=== PATIENT | male | born 1950 | race Caucasian/White ===

== ENCOUNTER 2021-06-11 15:44 | Emergency (ER) | payer MEDICARE, BC ==
--- NOTE | 2021-06-11 19:35 | EDM.PDOC ---
ED HPI GENERAL MEDICAL PROBLEM - General Chief Complaint: General Stated Complaint: NEEDS PICC LINE FIXED Time Seen by Provider: 06/11/21 19:04 Source of Information: Reports: Patient, Family () History Limitations: Reports: No Limitations - History of Present Illness INITIAL COMMENTS - FREE TEXT/NARRATIVE: Patient presents emergency room today secondary to concern about occluded PICC line-R upper arm site. He states that he has a PICC line for 6 weeks of IV antibiotics (nafcillin until or 4 Jun) 24-hour infusion secondary to infected left groin angiogram site that occurred when he was admitted to [facility]. He has been doing well up until today he decided to go out and cut some bushes and he gently ended up catching his PICC line infusion tubing cutt ing that line. He did clamp line but continue to work outside for approximately 2 and half hours after incident occurred. He states that instead occurred around noon states that about [id number] he told her about it and she attempted to at least flush line and hookup new tubing as she did not want to have anything open for possibility of infection. She states that she was unable to flush line and was then recommended by home health to come to the emergency room for further care NKDA PMH/Meds--reviewed in EMR Tob--former EtOH/Drug--denies Has not had COVID infection, has had COVID immunization - Related Data Allergies Allergy/AdvReac Type Severity Reaction Status Date / Time No Known Allergies Allergy Verified 06/11/21 18:44 Home Meds: Home Meds Clopidogrel [Plavix] 75 mg PO DAILY 06/11/21 [History] Dulaglutide [Trulicity] 3 mg SQ WEEKLY 06/11/21 [History] Dutasteride 1 tab PO DAILY 06/11/21 [History] Gentamicin [Gentak 0.3% Ophth Oint] 1 drop EYEBOTH ASDIRECTED PRN 06/11/21 [History] Insulin Glargine,Hum.Rec.Anlog [Basaglar Kwikpen U-100] 19 units SQ BEDTIME 06/11/21 [History] Losartan [Cozaar] 50 mg PO DAILY 06/11/21 [History] Nafcillin Sodium 10 gm IV DAILY 06/11/21 [History] Rosuvastatin [Crestor] 20 mg PO BEDTIME 06/11/21 [History] Tamsulosin HCl [Flomax] 1 tab PO BEDTIME 06/11/21 [History] azaTHIOprine [Imuran] 1 tab PO BEDTIME 06/11/21 [History] glipiZIDE [Glucotrol XL] 10 mg PO DAILY 06/11/21 [History] metFORMIN HCl [Metformin HCl] 1,000 mg PO BID 06/11/21 [History] Past Medical History Cardiovascular History: Reports: Other (See Below) Other Cardiovascular History: heart murmur repaired Gastrointestinal History: Reports: Other (See Below) Other Gastrointestinal History: chrones Neurological History: Reports: CVA Endocrine/Metabolic History: Reports: Diabetes, Type II - Past Surgical History Head Surgeries/Procedures: Reports: None Cardiovascular Surgical History: Reports: Valve Replacement, Other (See Below) Other Cardiovascular Surgeries/Procedures: cardiac stent GI Surgical History: Reports: Appendectomy, Small Bowel Endocrine Surgical History: Reports: None Neurological Surgical History: Reports: None Dermatological Surgical History: Reports: None Social & Family History - Tobacco Use Tobacco Use Status *Q: Former Tobacco User Years of Tobacco use: 12 Packs/Tins Daily: 1 Used Tobacco, but Quit: Yes Month/Year Tobacco Last Used: 1979 - Caffeine Use Caffeine Use: Reports: Coffee, Tea - Recreational Drug Use Recreational Drug Use: No ED ROS GENERAL - Review of Systems Review Of Systems: Comprehensive ROS is negative, except as noted in HPI. ED EXAM, GENERAL - Physical Exam Exam: See Below Exam Limited By: No Limitations General Appearance: Alert, WD/WN, No Apparent Distress Eye Exam: Bilateral Eye: EOMI, Normal Inspection Ears: Normal External Exam, Hearing Grossly Normal Nose: Normal Inspection Throat/Mouth: Normal Voice, No Airway Compromise Head: Atraumatic, Normocephalic Neck: Normal Inspection, Supple, Full Range of Motion Respiratory/Chest: No Respiratory Distress Cardiovascular: Normal Peripheral Pulses (Male) Exam: Deferred Rectal (Males) Exam: Deferred Back Exam: Normal Inspection, Full Range of Motion Extremities: Normal Inspection, Normal Range of Motion, Normal Capillary Refill, Other (has noted PICC line site to R-upper arm, no reddness/swelling or tenderness noted; it has cap in place for needless system) Neurological: Alert, Oriented, Normal Cognition, Normal Gait, No Motor/Sensory Deficits Psychiatric: Normal Affect, Normal Mood Skin Exam: Warm, Dry, Intact, Normal Color Course - Vital Signs Text/Narrative:: Harley ALMAGUER RN was able to flush PICC line without any difficulty able to withdraw blood. Flushed again and then hooked up to patient's home infusion of nafcillin. At this time patient is ready for discharge patient already has arranged home health care and the home health nurse for further care regarding his ongoing antibiotic infusion Last Recorded V/S: Last Vital Signs Temp 97.5 F 06/11/21 19:01 Pulse 57 L 06/11/21 19:01 Resp 18 06/11/21 19:01 BP 166/79 H 06/11/21 19:01 Pulse Ox 94 L 06/11/21 19:01 Departure - Departure Time of Disposition: 19:34 Disposition: Home, Self-Care 01 Condition: Good Clinical Impression: Occluded PICC line - Discharge Information *PRESCRIPTION DRUG MONITORING PROGRAM REVIEWED*: Not Applicable *COPY OF PRESCRIPTION DRUG MONITORING REPORT IN PATIENT JORDAN: Not Applicable Instructions: PICC Home Care Guide Referrals: Guicho Guevara MD [Primary Care Provider] - Forms: ED Department Discharge Additional Instructions: Continue to follow home care for your PICC line as well as infusions contact your home health nurse for any further questions or concerns Sepsis Event Note (ED) - Evaluation Sepsis Screening Result: No Definite Risk - Focused Exam Vital Signs: Vital Signs Temp Pulse Resp BP Pulse Ox 06/11/21 19:01 97.5 F 57 L 18 166/79 H 94 L 06/11/21 18:40 97.5 F 57 L 18 166/79 H 94 L
== END 2021-06-11 20:02 | disposition home or self-care (01) ==
LOC: JP.ED 15:44
DX: T82.898A Other specified complication of vascular prosthetic devices, implants and grafts, initial encounter (principal); E11.9 Type 2 diabetes mellitus without complications; Z87.891 Personal history of nicotine dependence; Z79.4 Long term (current) use of insulin; Z86.73 Personal history of transient ischemic attack (TIA), and cerebral infarction without residual deficits; Z79.899 Other long term (current) drug therapy
CPT/HCPCS: 99283

== ENCOUNTER 2025-06-13 16:31 | Emergency (ER) | payer MEDICARE, BC ==
[2025-06-13 17:10] LABS: BASOPHILS ABSOLUTE AUTO 0.06 K/uL (0.00-0.10); BASOPHILS PERCENT AUTO 0.6 % (0.1-1.3); EOSINOPHILS ABSOLUTE AUTO 0.28 K/uL (0.00-0.40); EOSINOPHILS PERCENT AUTO 2.7 % (0.0-5.4); IMMATURE GRAN ABSOLUTE AUTO 0.03 K/uL (0.00-0.23); IMMATURE GRAN PERCENT AUTO 0.3 % (0.0-0.7); LYMPHOCYTES ABSOLUTE AUTO 3.91 K/uL (0.8-3.3); LYMPHOCYTES PERCENT AUTO 37.3 % (11.4-47.7); MONOCYTES ABSOLUTE AUTO 0.79 K/uL (0.20-0.90); MONOCYTES PERCENT AUTO 7.5 % (3.3-12.6); NEUTROPHILS ABSOLUTE AUTO 5.41 K/uL (1.0-7.6); NEUTROPHILS PERCENT AUTO 51.6 % (40.0-78.1); PLATELET COUNT,PLT 224 K/uL (130-375); RED BLOOD CELL COUNT 4.44 M/uL (4.14-5.76); WHITE BLOOD CELL COUNT,WBC 10.5 K/uL (3.2-11.0)
[2025-06-13 17:15] LABS: INR 1.1
[2025-06-13 17:16] LABS: A/G RATIO 1.0 (1.2-2.2); ALANINE AMINOTRANSFERASE,ALT 34 U/L (12-78); ASPARTATE AMNIOTRANSFERASE,AST 24 U/L (15-37); BILIRUBIN TOTAL 0.8 mg/dL (0.2-1.0); BLOOD UREA NITROGEN,BUN 35 mg/dL (7-18); CARBON DIOXIDE,CO2 28 mmol/L (21-32); CHLORIDE,CL 98 mmol/L (100-108); CREATININE 1.5 mg/dL (0.8-1.3); ESTIMATED GFR 49 mL/min (>60); GLUCOSE RANDOM 73 mg/dL (74-106); POTASSIUM,K 3.9 mmol/L (3.6-5.2); PROTEIN TOTAL,TP 8.7 g/dL (6.4-8.2); SODIUM,NA 136 mmol/L (140-148)
[2025-06-13 17:28] LABS: APPEARANCE,URINE CLEAR (CLEAR); GLUCOSE,URINE NEGATIVE (NEGATIVE); OCCULT BLOOD,URINE NEGATIVE (NEGATIVE)
[2025-06-13] MEDS: Iopamidol 612 MG/ML 100 ML Bottle IV SCH (17:28)
[2025-06-13 17:35] LABS: SQUAMOUS EPITHELIAL CELLS,UR OCCASIONAL /HPF; UROTHELIAL CELLS,URINE NOT SEEN /HPF
== END 2025-06-13 19:54 | disposition home or self-care (01) ==
LOC: JP.ED 16:31
DX: G45.9 Transient cerebral ischemic attack, unspecified (principal); E11.9 Type 2 diabetes mellitus without complications; Z79.899 Other long term (current) drug therapy; Z79.4 Long term (current) use of insulin; Z88.1 Allergy status to other antibiotic agents; Z88.8 Allergy status to other drugs, medicaments and biological substances; Z90.49 Acquired absence of other specified parts of digestive tract
CPT/HCPCS: 36415; 70450; 70496; 70498; 80053; 81001; 85025; 85610; 93005; 99284; A9270; Q9967